=== PATIENT | female | born 1955 | race Two or more races ===

== ENCOUNTER 2020-07-09 05:05 | Day surgery (SDC) | payer OTHER ==
[~2020-07-09 05:05] MED LIST: LIPITOR20 MG PO; ZIAC 2.5-6.251 EACH PO
== END 2020-07-09 14:12 | disposition home or self-care (01) ==
LOC: CIR.AMB 05:05
PROVIDERS: ATTEND Specialist
DX: N95.0 Postmenopausal bleeding (principal); Z20.828 Contact with and (suspected) exposure to other viral communicable diseases

== ENCOUNTER 2025-03-28 09:00 | Day surgery (SDC) | payer OTHER ==
[2025-03-27 14:09] VITALS: BP 140/85
[~2025-03-28 09:00] MED LIST changes: +CLONAZEPAM0.5 MG PO
[2025-03-28] MEDS ORDERED: CEFAZOLIN SODIUM 1,000 MG VIAL IV ONE (12:00)
== END 2025-03-28 16:00 | disposition home or self-care (01) ==
LOC: CIR.AMB 09:00
PROVIDERS: ATTEND Surgery
DX: D05.02 Lobular carcinoma in situ of left breast (principal); R92.0 Mammographic microcalcification found on diagnostic imaging of breast; R59.0 Localized enlarged lymph nodes